=== PATIENT | female | born 1965 | race Caucasian/White ===

== ENCOUNTER 2017-12-31 05:11 | Day surgery (SDC) | payer OTHER ==
[~2017-12-31] VITALS: Ht 162.6 cm; Wt 65.8 kg
[~2017-12-31 05:11] MED LIST: ATOR10TA51 PO; CONJ1TAB PO; LEVO0.0214 PO; LOSA25TA22 PO; VENL37.55 PO; ZOLP-159 PO; [UNRECOGNIZED DRUG - OTHER]
[2017-12-31] MEDS ORDERED: PROPOFOL 200 MG/20 ML VIAL IV ONE (07:17)
[2017-12-31] MEDS ORDERED: SEVOFLURANE 250 ML BTL INH ONE (07:17)
[2017-12-31] MEDS ORDERED: MIDAZOLAM 2 MG/2 ML VIAL ONE (07:28)
[2017-12-31] MEDS ORDERED: ACETAMINOPHEN/CODEINE 300/30MG 1 TAB PO PRN (07:35)
[2017-12-31] MEDS ORDERED: ONDANSETRON 4 MG/2 ML VIAL IVP PRN (07:35)
[2017-12-31] MEDS ORDERED: MORPHINE SULFATE 4 MG/ML SYR IM/IVP PRN (07:35)
[2017-12-31] MEDS ORDERED: IBUPROFEN 800 MG TAB PO PRN (07:35)
== END 2017-12-31 09:20 | disposition home or self-care (01) ==
LOC: MDS 05:11 → MMU 06:00 → MDS 09:20
PROVIDERS: ATTEND Obstetrics & Gynecology
DX: N95.0 Postmenopausal bleeding (principal); I10 Essential (primary) hypertension; E78.5 Hyperlipidemia, unspecified; E03.9 Hypothyroidism, unspecified; Z88.8 Allergy status to other drugs, medicaments and biological substances; Z91.013 Allergy to seafood; Z98.890 Other specified postprocedural states; Z79.899 Other long term (current) drug therapy; F17.210 Nicotine dependence, cigarettes, uncomplicated
CPT/HCPCS: 58120; 71045; 93005; J2250; J2704; J7120; Q0092

== ENCOUNTER 2022-02-13 05:42 | Day surgery (SDC) | payer OTHER ==
[~2022-02-13] VITALS: Ht 165.1 cm; Wt 69.9 kg
[~2022-02-13 05:42] MED LIST changes: -LOSA25TA22 PO; +LOSA25TA43 PO
[2022-02-13] MEDS ORDERED: diphenhydrAMINE 50 MG/ML VIAL ONE (07:23)
[2022-02-13] MEDS ORDERED: MIDAZOLAM 2 MG/2 ML VIAL ONE (07:24)
[2022-02-13] MEDS ORDERED: LIDOCAINE 2% 100 MG/5 ML UJET TP ONE (07:24)
[2022-02-13] MEDS ORDERED: fentaNYL citrate 0.05 MG/ML VIAL ONE (07:24)
[2022-02-13] MEDS ORDERED: MIDAZOLAM 2 MG/2 ML VIAL IVP ONE (08:40)
[2022-02-13] MEDS ORDERED: fentaNYL citrate 0.05 MG/ML VIAL IVP ONE (08:40)
== END 2022-02-13 08:58 | disposition home or self-care (01) ==
LOC: MMU 05:42 → MDS 05:42
PROVIDERS: ATTEND Internal Medicine Gastroenterology
DX: R19.5 Other fecal abnormalities (principal); D12.4 Benign neoplasm of descending colon; I10 Essential (primary) hypertension; E78.5 Hyperlipidemia, unspecified; F32.9 Major depressive disorder, single episode, unspecified; Z98.890 Other specified postprocedural states; Z79.899 Other long term (current) drug therapy; Z20.822 Contact with and (suspected) exposure to COVID-19
CPT/HCPCS: 88305; J1200; J2250; J3010